=== PATIENT | female | born 1985 | race Caucasian/White ===

== ENCOUNTER 2020-07-12 19:12 | Emergency (ER) | payer OTHER ==
[~2020-07-12 19:12] MED LIST: COLACE100 MG PO; DIAZEPAM 5MG TAB5 MG PO; EFFEXOR XR37.5 MG PO; FEOSOL325 MG PO; IBU600 MG PO; IBUPROFEN800 M1 PO; K-DUR20 MEQ PO; MACROBID100 MG PO; MOTRIN600 MG PO; NAPROXEN500 MG PO; ONDANSETRON ODT4 MG SL; PERCOCET 5-3251 EACH PO; PROMETHAZINE-D118 ML PO; TAMIFLU 75MG CA75 MG PO; VOLTAREN **OUT75 MG PO; ZOFRAN4 MG PO
== END 2020-07-12 22:22 | disposition left against medical advice (07) ==
LOC: FER 19:12
DX: S00.522A Blister (nonthermal) of oral cavity, initial encounter (principal); H92.01 Otalgia, right ear; X58.XXXA Exposure to other specified factors, initial encounter; Z53.8 Procedure and treatment not carried out for other reasons

== ENCOUNTER 2020-07-31 21:52 | Emergency (ER) | payer OTHER ==
[2020-07-31 22:21] LABS: BASOPHIL 0.7 % (0-2); EOSINOPHIL 2.2 % (0-5); HGB 14.9 g/dl (12.5-16.0); MCH 30.5 pg (25.0-31.0); MCHC 35.5 g/dL (32.0-36.0); MCV 85.9 fL (78.0-100.0); MONOCYTE 6.8 % (0-12); MPV 8.9 fL (6.0-9.5); NEUTROPHIL 59.6 % (41-80); NRBC 0; PLT 376 K/uL (150-400); RBC 4.89 M/uL (4.20-5.40); RDW 12.3 % (11.5-14.0); WBC 15.1 K/uL (4.0-10.5)
[2020-07-31 22:25] LABS: LYMPHOCYTE 30.2 % (15-48)
[2020-07-31 22:38] LABS: ALKALINE PHOSHATASE 91 U/L (46-116); ALT 35 U/L (14-59); AST 20 U/L (15-37); BILIRUBIN - TOTAL 0.4 mg/dL (0.2-1.0); BUN 12 mg/dL (7-18); BUN/CREAT RATIO (CALC) 15.2 RATIO; CHLORIDE 97 mmol/L (98-107); CO2 (BICARBONATE) 26 mmol/L (21-32); CREATININE 0.79 mg/dL (0.51-0.95); GLOBULIN (CALCULATION) 4.8 g/dL; GLUCOSE 111 mg/dL (74-106); TOTAL PROTEIN 8.8 g/dL (6.4-8.2)
[2020-07-31 22:39] LABS: ACETAMINOPHEN (TYLENOL) < 2.0 ug/mL (10.0-30.0)
[2020-07-31 22:48] LABS: POTASSIUM 2.2 mmol/L (3.5-5.1)
[2020-07-31 23:49] LABS: CLARITY CLOUDY (CLEAR); COLOR YELLOW (YELLOW); PROTEIN NEGATIVE (NEGATIVE); pH 6.5 (5.0-9.0)
[2020-07-31 23:50] LABS: BILIRUBIN NEGATIVE (NEGATIVE); BLOOD NEGATIVE Ery/uL (NEGATIVE); GLUCOSE (U) NORMAL (NORMAL); LEUKOCYTES TRACE Leu/uL (NEGATIVE); NITRITE NEGATIVE (NEGATIVE); UROBILINOGEN 0.2 mg/dL (0.2-1.0)
[2020-07-31 23:52] LABS: AMPHETAMINES POSITIVE (NEGATIVE); BARBITURATES NEGATIVE (NEGATIVE); ECSTASY (MDMA) NEGATIVE (NEGATIVE); MARIJUANA (THC) POSITIVE (NEGATIVE); METHADONE NEGATIVE (NEGATIVE); OPIATES NEGATIVE (NEGATIVE); OXYCODONE NEGATIVE (NEGATIVE)
[2020-08-01] LABS: URINARY RBC RARE
[2020-08-01 00:01] LABS: BACTERIA 2+
== END 2020-08-01 09:03 | disposition home or self-care (01) ==
LOC: FER 21:52
PROVIDERS: Emergency Medicine Emergency Medical Services
DX: T42.4X2A Poisoning by benzodiazepines, intentional self-harm, initial encounter (principal); F31.9 Bipolar disorder, unspecified; I10 Essential (primary) hypertension; Z88.0 Allergy status to penicillin; Z88.2 Allergy status to sulfonamides; Z79.899 Other long term (current) drug therapy; Z20.822 Contact with and (suspected) exposure to COVID-19
CPT/HCPCS: 36415; 71045; 80053; 80305; 81001; 84132; 85025; 93005; G0480; J3480; J7030; U0002

== ENCOUNTER 2020-12-29 14:30 | Emergency (ER) | payer OTHER ==
[2020-12-29] MEDS ORDERED: CYCLOBENZAPRINE10 MG PO (16:47)
[2020-12-29] MEDS ORDERED: MEDROL 4MG DOSEP4 MG PO (16:47)
== END 2020-12-29 17:17 | disposition home or self-care (01) ==
LOC: FER 14:30
DX: S33.5XXA Sprain of ligaments of lumbar spine, initial encounter (principal); S23.3XXA Sprain of ligaments of thoracic spine, initial encounter; S20.221A Contusion of right back wall of thorax, initial encounter; Z88.0 Allergy status to penicillin; Z88.2 Allergy status to sulfonamides; Z91.040 Latex allergy status; W01.0XXA Fall on same level from slipping, tripping and stumbling without subsequent striking against object, initial encounter; W10.9XXA Fall (on) (from) unspecified stairs and steps, initial encounter; Y92.009 Unspecified place in unspecified non-institutional (private) residence as the place of occurrence of the external cause
CPT/HCPCS: 71100; 72128; 72131; J1100

== ENCOUNTER → 2021-02-19 | Day surgery (SDC) | payer OTHER ==
[~2021-02-19] VITALS: Ht 175.3 cm; Wt 104.3 kg
[~2021-02-19] MED LIST changes: +CARAFATE1 GM PO; +CYCLOBENZAPRINE10 MG PO; +LASIX20 MG PO; +MEDROL 4MG DOSEP4 MG PO; +PROTONIX 40MG T40 MG PO
== END | disposition home or self-care (01) ==
LOC: FAS 09:00
DX: K62.5 Hemorrhage of anus and rectum (principal); K29.60 Other gastritis without bleeding; K44.9 Diaphragmatic hernia without obstruction or gangrene; K21.00 Gastro-esophageal reflux disease with esophagitis, without bleeding; K64.8 Other hemorrhoids; R14.0 Abdominal distension (gaseous); K59.00 Constipation, unspecified; K22.10 Ulcer of esophagus without bleeding; F17.200 Nicotine dependence, unspecified, uncomplicated; Z88.0 Allergy status to penicillin; Z88.2 Allergy status to sulfonamides; Z90.710 Acquired absence of both cervix and uterus; Z80.0 Family history of malignant neoplasm of digestive organs; Z72.89 Other problems related to lifestyle
CPT/HCPCS: J2704; J7120

== ENCOUNTER → 2021-04-23 | Day surgery (SDC) | payer OTHER ==
[~2021-04-23] VITALS: Ht 175.3 cm; Wt 103.9 kg
[~2021-04-23] MED LIST changes: +SEROQUEL200 MG PO
== END | disposition home or self-care (01) ==
LOC: FAS 07:59
DX: K29.50 Unspecified chronic gastritis without bleeding (principal); K21.00 Gastro-esophageal reflux disease with esophagitis, without bleeding; K22.10 Ulcer of esophagus without bleeding; Z88.0 Allergy status to penicillin; Z88.2 Allergy status to sulfonamides; Z90.710 Acquired absence of both cervix and uterus; Z98.51 Tubal ligation status; Z80.0 Family history of malignant neoplasm of digestive organs; Z72.89 Other problems related to lifestyle; Z72.0 Tobacco use
CPT/HCPCS: J2250; J2704; J7120